=== PATIENT | female | born 1940 | race American Indian/Alaskan Native ===

== ENCOUNTER 2019-01-12 22:01 | Emergency (ER) | payer MEDICARE ==
[2019-01-12 23:55] LABS: Basophils % (Auto) 0.5 % (0.0-1.8); Eosinophils # (Auto) 0.1 K/mm3 (0.0-0.4); Eosinophils % (Auto) 1.5 % (0.0-4.3); Hematocrit 33.9 % (30.3-42.9); Hemoglobin 11.4 gm/dl (10.1-14.3); Lymphocytes # (Auto) 1.7 K/mm3 (1.2-5.4); Lymphocytes % (Auto) 32.9 % (13.4-35.0); Mean Corpuscular HGB Conc 34 % (30-34); Mean Corpuscular Volume 91 fl (79-97); Monocytes # (Auto) 0.5 K/mm3 (0.0-0.8); Platelet Count 143 K/mm3 (140-440); Red Blood Count 3.75 M/mm3 (3.65-5.03); Red Cell Distribution Width 15.5 % (13.2-15.2)
[2019-01-13] MEDS ORDERED: NACL 0.9% 1000 ML 1,000 ML IV ONE (00:05)
[2019-01-13 00:11] LABS: BUN/Creatinine Ratio 34; Blood Urea Nitrogen 24 mg/dL (7-17); Calcium 9.6 mg/dL (8.4-10.2); Hemolysis Index 5
--- NOTE | 2019-01-13 01:19 | Emergency Department Report ---
ED Dizziness HPI - General Chief Complaint: Dizziness Stated Complaint: GENERAL ILLNESS Time Seen by Provider: 01/12/19 23:59 Source: patient Mode of arrival: Ambulatory Limitations: No Limitations - History of Present Illness Initial Comments: Patient is a 78-year-old female who is presenting with some mild dizziness. Patient states that she was at her home and became very hot and was sweating profusely. Patient thought she may have had a fever and called 911. When paramedics arrived they confirmed that the temperature was very elevated and she was having some malfunction of her air conditioning unit. Patient was brought in to be evaluated for some dizziness which she describes as lightheadedness she feels as though she may pass out. Patient is a history of diabetes and hypertension. Patient denies any chest pain focal neurological deficits shortness of breath. Patient states she does feel a lot cooler now being in the hospital but still feels slightly woozy - Related Data Home Medications Medication Instructions Recorded Confirmed Last Taken Aspirin EC [Ecotrin] 325 mg PO QDAY 03/23/15 03/23/15 08/11/15 Labetalol HCl [Trandate TAB] 300 mg PO BID PRN 03/23/15 03/23/15 1 Day Ago ~12/08/15 Lisinopril [Zestril] 20 mg PO QDAY 12/09/15 12/09/15 1 Day Ago ~12/08/15 20 Tylenol Pm Ex-Strength Caplet 500 mg PO PRN 12/09/15 2 Days Ago ~12/07/15 Previous Rx's Medication Instructions Recorded Last Taken Type Aspirin 325 mg PO QDAY tablet 12/12/15 Unknown Rx AtorvaSTATin [Lipitor] 40 mg PO QHS tablet 12/12/15 Unknown Rx Insulin Regular, Human [HumuLIN R] 0 units SUB-Q QHS units 12/12/15 Unknown Rx Lisinopril [Zestril TAB] 40 mg PO BID tablet 12/12/15 Unknown Rx amLODIPine [Norvasc] 10 mg PO QDAY tablet 12/12/15 Unknown Rx Allergies Allergy/AdvReac Type Severity Reaction Status Date / Time No Known Allergies Allergy Verified 11/24/14 20:57 ED Review of Systems ROS: Stated complaint: GENERAL ILLNESS Other details as noted in HPI Comment: All other systems reviewed and negative ED Past Medical Hx - Past Medical History Hx Hypertension: Yes Hx CVA: Yes (08/25) Hx Diabetes: Yes Hx HIV: No Additional medical history: [place] Palsy - Surgical History Hx Pacemaker: No Additional Surgical History: L carpal tunnel - Social History Smoking Status: Unknown if ever smoked - Medications Home Medications: Home Medications Medication Instructions Recorded Confirmed Last Taken Type Aspirin EC [Ecotrin] 325 mg PO QDAY 03/23/15 03/23/15 08/11/15 History Labetalol HCl [Trandate TAB] 300 mg PO BID PRN 03/23/15 03/23/15 1 Day Ago History ~12/08/15 Lisinopril [Zestril] 20 mg PO QDAY 12/09/15 12/09/15 1 Day Ago History ~12/08/15 20 Tylenol Pm Ex-Strength Caplet 500 mg PO PRN 12/09/15 2 Days Ago History ~12/07/15 Aspirin 325 mg PO QDAY tablet 12/12/15 Unknown Rx AtorvaSTATin [Lipitor] 40 mg PO QHS tablet 12/12/15 Unknown Rx Insulin Regular, Human [HumuLIN R] 0 units SUB-Q QHS units 12/12/15 Unknown Rx Lisinopril [Zestril TAB] 40 mg PO BID tablet 12/12/15 Unknown Rx amLODIPine [Norvasc] 10 mg PO QDAY tablet 12/12/15 Unknown Rx ED Physical Exam - General Limitations: No Limitations General appearance: alert, in no apparent distress - Head Head exam: Present: atraumatic, normocephalic - Eye Eye exam: Present: normal appearance - ENT ENT exam: Present: mucous membranes moist - Neck Neck exam: Present: normal inspection - Respiratory Respiratory exam: Present: normal lung sounds bilaterally. Absent: respiratory distress, wheezes, rales, rhonchi - Cardiovascular Cardiovascular Exam: Present: regular rate, normal rhythm. Absent: systolic murmur, diastolic murmur, rubs, gallop - GI/Abdominal GI/Abdominal exam: Present: soft, normal bowel sounds. Absent: distended, t enderness, guarding, rebound - Extremities Exam Extremities exam: Present: normal inspection - Back Exam Back exam: Present: normal inspection - Neurological Exam Neurological exam: Present: alert, oriented X3 - Psychiatric Psychiatric exam: Present: normal affect, normal mood - Skin Skin exam: Present: warm, dry, intact, normal color. Absent: rash ED Course Vital Signs 01/12/19 23:25 Temperature 97.8 F Pulse Rate 64 Respiratory 16 Rate Blood Pressure 150/79 O2 Sat by Pulse 100 Oximetry ED Medical Decision Making - Lab Data Result diagrams: 01/12/19 23:31 01/12/19 23:34 - Medical Decision Making Patient with some mild prerenal azotemia secondary to likely dehydration. Patient after receiving IV fluids is feeling much improved and should be discharged home. Critical care attestation.: If time is entered above; I have spent that time in minutes in the direct care of this critically ill patient, excluding procedure time. ED Disposition Clinical Impression: Acute prerenal azotemia, Dehydration Heat exhaustion Qualifiers: Encounter type: initial encounter Qualified Code(s): T67.5XXA - Heat exhaustion, unspecified, initial encounter Disposition: DC-01 TO HOME OR SELFCARE Is pt being admited?: No Does the pt Need Aspirin: No Condition: Stable Instructions: Heat Exhaustion (ED) Referrals: TYLER MAC MD [Primary Care Provider] - 3-5 Days Time of Disposition: 01:19
[2019-01-13 05:27] VITALS: BP 147/89
== END 2019-01-13 05:29 | disposition home or self-care (01) ==
LOC: ED 22:01
DX: T67.5XXA Heat exhaustion, unspecified, initial encounter (principal); R79.89 Other specified abnormal findings of blood chemistry; E86.0 Dehydration; I10 Essential (primary) hypertension; E11.9 Type 2 diabetes mellitus without complications; Z86.73 Personal history of transient ischemic attack (TIA), and cerebral infarction without residual deficits; Z79.82 Long term (current) use of aspirin; Z79.899 Other long term (current) drug therapy; Z79.4 Long term (current) use of insulin; X30.XXXA Exposure to excessive natural heat, initial encounter; Y93.89 Activity, other specified; Y92.89 Other specified places as the place of occurrence of the external cause; Y99.8 Other external cause status
CPT/HCPCS: 36415; 80048; 85025; 93005; 93010; 96360; 99283; J7030

== ENCOUNTER → 2020-08-15 | Emergency (ER) | payer BC, MEDICARE ==
--- NOTE | 2020-08-15 17:24 | Emergency Department Report ---
Stated Complaint: HIGH BLOOD PRESSURE - HPI History of Present Illness: 80-year-old -[place] female presented to the emergency room from [facility] services reported that she was having an elevated blood pressure. Patient reports that she had called 911 because she did not have any electricity in food. Patient states that on [employer] came to disconnect her electricity and she did not have enough battery on her phone to make a phone call to self today. Patient states that she had tripped pride make an effort to call [employer] and when she went to get them her credit card information the phone disconnected. Patient states at that time she did not have any more charge. Patient states then she was able to call 911 from her phone and that is when rescue squad came out to evaluate her and would reported that her blood pressure was in the 200s over 100 something. Patient states that they informed her that her blood pressure was at stroke level in proceeded to bring her to the emergency room. Patient was noted to have a blood pressure in triage of 140/86. Patient denies any chest pain shortness of breath blurred vision headache. Patient does have a past medical history of a CVA. Patient states that she does have a family member that lives a little greater than an hour and 45 minutes away and she is supposed to be coming to see her. - Exam Physical Exam: Gen: alert oriented NAD Cardic: regular rate and rhythm no murmurs appreciated Resp: Clear to auscultation bilateral no wheezing no rales or rhonchi. Abdomen: Soft nontender nondistended normal bowel sounds. Patient is able to move all extremities. MSE screening note: Focused history and physical exam performed. Due to findings the following was ordered: 80-year-old -[place] female presented to the emergency room from [facility] emergency services reported that she was having an elevated blood pressure. Patient reports that she had called 911 because she did not have any electricity in food. Patient states that on [employer] came to disconnect her electricity and she did not have enough battery on her phone to make a phone call to self today. Patient states that she had tripped pride make an effort to call [employer] and when she went to get them her credit card information the phone disconnected. Patient states at that time she did not have any more charge. Patient states then she was able to call 911 from her phone and that is when rescue squad came out to evaluate her and would reported that her blood pressure was in the 200s over 100 something. Patient states that they informed her that her blood pressure was at stroke level in proceeded to bring her to the emergency room. Patient was noted to have a blood pressure in triage of 140/86. Patient denies any chest pain shortness of breath blurred vision headache. Patient does have a past medical history of a CVA. Patient states that she does have a family member that lives a little greater than an hour and 45 minutes away and she is supposed to be coming to see her. Patient has stable vital signs stable examination. Inform charge nurse that patient needs social welfare administrator. ED Disposition for MSE Condition: Stable
== END ==
LOC: ED 16:29
DX: I10 Essential (primary) hypertension (principal); Z53.21 Procedure and treatment not carried out due to patient leaving prior to being seen by health care provider

== ENCOUNTER → 2020-08-15 | Emergency (ER) | payer BC, MEDICARE ==
--- NOTE | 2020-08-15 18:35 | Emergency Department Report ---
Avain Doc - Documentation Documentation: 80-year-old -[place]omb[place] female presented to the emergency room from [facility] services reported that she was having an elevated blood pressure. Patient reports that she had called 911 because she did not have any electricity in food. Patient states that on [employer] came to disconnect her electricity and she did not have enough battery on her phone to make a phone call to self today. Patient states that she had tripped pride make an effort to call [employer] and when she went to get them her credit card information the phone disconnected. Patient states at that time she did not have any more charge. Patient states then she was able to call 911 from her phone and that is when rescue squad came out to evaluate her and would reported that her blood pressure was in the 200s over 100 something. Patient states that they informed her that her blood pressure was at stroke level in proceeded to bring her to the emergency room. Patient was noted to have a blood pressure in triage of 140/86. Patient denies any chest pain shortness of breath blurred vision headache. Patient does have a past medical history of a CVA. Patient states that she does have a family member that lives a little greater than an hour and 45 minutes away and she is supposed to be coming to see her. - Exam Physical Exam: Gen: alert oriented NAD Cardic: regular rate and rhythm no murmurs appreciated Resp: Clear to auscultation bilateral no wheezing no rales or rhonchi. Abdomen: Soft nontender nondistended normal bowel sounds. Patient is able to move all extremities. MSE screening note: Focused history and physical exam performed. Due to findings the following was ordered: 80-year-old -[place]omb[place] female presented to the emergency room from [facility] emergency services reported that she was having an elevated blood pressure. Patient reports that she had called 911 because she did not have any electricity in food. Patient states that on [employer] came to disconnect her electricity and she did not have enough battery on her phone to make a phone call to self today. Patient states that she had tripped pride make an effort to call [employer] and when she went to get them her credit card information the phone disconnected. Patient states at that time she did not have any more charge. Patient states then she was able to call 911 from her phone and that is when rescue squad came out to evaluate her and would reported that her blood pressure was in the 200s over 100 something. Patient states that they informed her that her blood pressure was at stroke level in proceeded to bring her to the emergency room. Patient was noted to have a blood pressure in triage of 140/86. Patient denies any chest pain shortness of breath blurred vision headache. Patient does have a past medical history of a CVA. Patient states that she does have a family member that lives a little greater than an hour and 45 minutes away and she is supposed to be coming to see her. Patient has stable vital signs stable examination. Inform charge nurse that patient needs social work supervisor. ED Disposition for MSE Condition: Stable
== END ==
LOC: ED 17:23
DX: I10 Essential (primary) hypertension (principal); Z53.21 Procedure and treatment not carried out due to patient leaving prior to being seen by health care provider